=== PATIENT | male | born 1985 ===

== ENCOUNTER 2019-08-09 16:38 | Emergency (ER) | payer SELFPAY ==
[~2019-08-09] VITALS: Ht 172 cm; Wt 89.0 kg
--- OUTSIDE RECORDS SUMMARY | 2019-08-09 16:43 | XMS REPORT ---
Author Author Emerson NAJERA Organization [facility] Address [address] [place] [address] Care Team Providers Care Senior Director Marketing Name Role Phone WINNIE NAJERA Unavailable PROBLEMS Type Condition ICD9-CM Code HSP75-EQ Code Onset Dates Condition S tatus SNOMED Code Problem Internal derangement of right knee M23.91 Active 770881852333800 Problem Lumbago 724.2 Active 550626486 Problem Pain in joint, forearm 719.43 Active 428828437 Problem Screening examination for venereal disease V74.5 Active [id number] ALLERGIES No Information ENCOUNTERS Encounter Location Date Diagnosis [place] [id number] [place] [id number] [address] [place] [phone] Sep, Internal derangement of righ t knee M23.91 [facility] [address] [place] [id number] [address] [place] [phone] Jun, Screen for STD (sexually tra nsmitted disease) Z11.3 and Exposure to STD Z20.2 [place] [address] [place] [id number] [address] [place] [phone] May, Screen for STD (sexually tra nsmitted disease) Z11.3 and Exposure to STD Z20.2 [place] [address] [place] [id number] [address] [place] [phone] Apr, Exposure to STD Z20.2 ; Scre en for STD (sexually transmitted disease) Z11.3 and Dysuria R30.0 [place] [address] [place] [id number] [address] [place] [phone] Jul, [place] [address] [place] [id number] [address] [place] [phone] Jul, [place] [address] [place] [id number] [address] [place] [phone] Oct, [facility] [address] [id number] [address] [place] [phone] Oct, [facility] [address] [id number] [address] [place] [phone] Sep, [facility] [address] [id number] [address] [place] [phone] Sep, [facility] [address] [id number] [address] [place] [phone] Dec, [facility] [address] [id number] [address] [place] [phone] Apr, [facility] [address] [facility] [id number] [address] [place] [phone] Apr, [facility] [address] [facility] [id number] [address] [place] [phone] Apr, IMMUNIZATIONS No Known Immunizations SOCIAL HISTORY Never Assessed REASON FOR VISIT Lab (walk-in) PLAN OF CARE VITAL SIGNS MEDICATIONS No Known Medications RESULTS Name Result Date Reference Range SYPHILIS (STATE) 2017-06-18 PROCEDURES Procedure Date Ordered Result Body Site No Charge June 18, 2017 VENIPUNCT, ROUTINE* June 18, 2017 INSTRUCTIONS MEDICATIONS ADMINISTERED No Known Medications
--- OUTSIDE RECORDS SUMMARY | 2019-08-09 16:43 | XMS REPORT ---
Author Author Emerson Brooks Doctor Organization [facility] Address Unknown Phone Unavailable Care Team Providers Care Community Specialist Name Role Phone Migration, Doctor Unavailable Unavailable PROBLEMS Type Condition ICD9-CM Code WTC07-GM Code Onset Dates Condition S tatus SNOMED Code Problem Lumbago 724.2 Active 371739638 Problem Internal derangement of right knee M23.91 Active 209638963582165 Problem Screening examination for venereal disease V74.5 Active 852987147 Problem Pain in joint, forearm 719.43 Active [id number] ALLERGIES No Information ENCOUNTERS Encounter Location Date Diagnosis [place] [address] [place] [id number] [address] [place] [address] Sep, Internal derangement of righ t knee M23.91 [place] [address] [place] [id number] [address] [place] [address] Jun, Screen for STD (sexually tra nsmitted disease) Z11.3 and Exposure to STD Z20.2 [place] [address] [place] [id number] [address] [place] [address] May, Screen for STD (sexually tra nsmitted disease) Z11.3 and Exposure to STD Z20.2 [place] [address] [place] [address] Apr, Exposure to STD Z20.2 ; Scre en for STD (sexually transmitted disease) Z11.3 and Dysuria R30.0 [place] [address] [place] [id number] [address] [place] [address] Jul, [place] [address] [place] [id number] [address] [place] [phone] Jul, [place] [address] [place] [id number] [address] [place] [phone] Oct, [facility] [address] [id number] [address] [place] [phone] Oct, [facility] [address] [id number] [address] [place] [phone] Sep, [facility] [address] [id number] [address] [place] [phone] Sep, [facility] [address] [id number] [address] [place] [phone] Dec, [facility] [address] [id number] [address] [place] [phone] Apr, [facility] [address] [id number] [address] [place] [phone] Apr, [facility] [address] [facility] [id number] [address] [place] [phone] Apr, IMMUNIZATIONS No Known Immunizations SOCIAL HISTORY Never Assessed REASON FOR VISIT EMR-[facility] PLAN OF CARE VITAL SIGNS MEDICATIONS Medication Instructions Dosage Frequency Start Date End Date Duration S kenny Naproxen 500 mg take 1 tablet (500 m g) by oral route 2 times per day with food Sep, Active RESULTS No Results PROCEDURES No Known procedures INSTRUCTIONS MEDICATIONS ADMINISTERED No Known Medications
--- OUTSIDE RECORDS SUMMARY | 2019-08-09 16:43 | XMS REPORT ---
Author Author Emerson Brooks Doctor Organization [facility] Address Unknown Phone Unavailable Care Team Providers Care Industrial Electrician Name Role Phone Migration, Doctor Unavailable Unavailable PROBLEMS Type Condition ICD9-CM Code DDB53-BQ Code Onset Dates Condition S tatus SNOMED Code Problem Lumbago 724.2 Active 306174720 Problem Internal derangement of right knee M23.91 Active 010305752563899 Problem Screening examination for venereal disease V74.5 Active 358601543 Problem Pain in joint, forearm 719.43 Active 069736946 ALLERGIES No Information ENCOUNTERS Encounter Location Date Diagnosis [place] [address] [place] [id number] [address] [place] [address] Sep, Internal derangement of righ t knee M23.91 [place] [address] [place] [address] Jun, Screen for STD (sexually tra nsmitted disease) Z11.3 and Exposure to STD Z20.2 [place] [address] [place] [id number] [address] [place] [phone] May, Screen for STD (sexually tra nsmitted disease) Z11.3 and Exposure to STD Z20.2 [place] [address] [place] [address] Apr, Exposure to STD Z20.2 ; Scre en for STD (sexually transmitted disease) Z11.3 and Dysuria R30.0 [place] [address] [place] [id number] [address] [place] [phone] Jul, [place] [address] [place] [id number] [address] [place] [phone] Jul, [place] [address] [place] [id number] [address] [place] [phone] Oct, [facility] [address] [id number] [address] [place] [phone] Oct, [facility] [address] [id number] [address] [place] [phone] Sep, [facility] [address] [id number] [address] [place] [phone] Sep, [facility] [address] [id number] [address] [place] [phone] Dec, [facility] [address] [id number] [address] [place] [phone] Apr, [facility] [address] [id number] [address] [place] [phone] Apr, [facility] [address] [facility] [id number] [address] [place] [phone] Apr, IMMUNIZATIONS No Known Immunizations SOCIAL HISTORY Never Assessed REASON FOR VISIT [place] [place] CARE VITAL SIGNS MEDICATIONS No Known Medications RESULTS No Results PROCEDURES No Known procedures INSTRUCTIONS MEDICATIONS ADMINISTERED No Known Medications
--- OUTSIDE RECORDS SUMMARY | 2019-08-09 16:43 | XMS REPORT ---
Author Author Emerson PANDA Organization [facility] Address [address] [place] [address] Care Team Providers Care Brass Reclaimer Name Role Phone ETHANVirgil JOSELITO Unavailable PROBLEMS Type Condition ICD9-CM Code AWF72-HK Code Onset Dates Condition S tatus SNOMED Code Problem Internal derangement of right knee M23.91 Active [id number] ALLERGIES No Information ENCOUNTERS Encounter Location Date Diagnosis [facility] [address] [address] Nov, Contact dermatitis, unspecif ied contact dermatitis type, unspecified trigger L25.9 [facility] [address] [place] [address] Sep, Internal derangement of righ t knee M23.91 [facility] [address] [place] [address] Jun, Screen for STD (sexually tra nsmitted disease) Z11.3 and Exposure to STD Z20.[address] [address] May, Screen for STD (sexually tra nsmitted disease) Z11.3 and Exposure to STD Z20.[address] [address] Apr, Exposure to STD Z20.2 ; Scre en for STD (sexually transmitted disease) Z11.3 and Dysuria R30.0 [place] [address] [address] Jul, [facility] [address] [phone] Jul, [facility] [address] [id number] [address] [place] [phone] Oct, [facility] [address] [id number] [address] [place] [phone] Oct, [facility] [address] [id number] [address] [place] [phone] Sep, [facility] [address] [id number] [address] [place] [phone] Sep, [facility] [address] [id number] [address] [place] [phone] Dec, [facility] [address] [id number] [address] [place] [phone] Apr, [facility] [address] [id number] [address] [place] [phone] Apr, [facility] [address] [id number] [address] [place] [phone] Apr, IMMUNIZATIONS No Known Immunizations SOCIAL HISTORY Never Assessed REASON FOR VISIT PLAN OF CARE VITAL SIGNS Height 70 in 2013-10-13 Weight 157.2 lbs 2013-10-13 Temperature 98 degrees Fahrenheit 2013-10-13 Heart Rate 68 bpm 2013-10-13 Respiratory Rate 20 2013-10-13 Blood pressure systolic 118 mmHg 2013-10-13 Blood pressure diastolic 70 mmHg 2013-10-13 MEDICATIONS No Known Medications RESULTS No Results PROCEDURES Procedure Date Ordered Result Body Site URINALYSIS, AUTO, W/O SCOPE October 13, 2013 INSTRUCTIONS MEDICATIONS ADMINISTERED No Known Medications MEDICAL (GENERAL) HISTORY Type Description Date Surgical History No know Surgical history
--- OUTSIDE RECORDS SUMMARY | 2019-08-09 16:43 | XMS REPORT ---
Author Author Emerson ROTH Organization [facility] Address [address] [place] [address] Care Team Providers Care Ship'S Master Name Role Phone PRETTY ROTH Unavailable PROBLEMS Type Condition ICD9-CM Code AUB76-XF Code Onset Dates Condition S tatus SNOMED Code Problem Internal derangement of right knee M23.91 Active 374543377667655 Problem Lumbago 724.2 Active 859535651 Problem Pain in joint, forearm 719.43 Active 672835307 Problem Screening examination for venereal disease V74.5 Active 550298273 ALLERGIES No Known Allergies ENCOUNTERS Encounter Location Date Diagnosis [place] [address] [place] [address] Sep, Internal derangement of righ t knee M23.91 [facility] [address] [place] [phone] Jun, Screen for STD (sexually tra nsmitted disease) Z11.3 and Exposure to STD Z20.2 [place] [address] [place] [id number] [address] [place] [phone] May, Screen for STD (sexually tra nsmitted disease) Z11.3 and Exposure to STD Z20.2 [facility] [address] [place] [id number] [address] [place] [phone] Apr, Exposure to STD Z20.2 ; Scre en for STD (sexually transmitted disease) Z11.3 and Dysuria R30.0 [facility] [address] [place] [id number] [address] [place] [phone] Jul, [place] [address] [place] [id number] [address] [place] [phone] Jul, [place] [address] [place] [id number] [address] [place] [phone] Oct, [facility] [address] [id number] [address] [place] [phone] Oct, [facility] [address] [id number] [address] [place] [phone] Sep, [facility] [address] [id number] [address] [place] [phone] Sep, [facility] [address] [id number] [address] [place] [phone] Dec, [facility] [address] [id number] [address] [place] [phone] Apr, [facility] [address] [id number] [address] [place] [phone] Apr, [facility] [address] [id number] [address] [place] [phone] Apr, IMMUNIZATIONS No Known Immunizations SOCIAL HISTORY Never Assessed REASON FOR VISIT Establish Care-HAYLIE wong, right knee is has pain for about a year. PLAN OF CARE Activity Details Follow Up prn Reason:knee pain Pending Test MRI : Knee, Right w/contrast VITAL SIGNS Height 70 in 2017-10-09 Weight 175.1 lbs 2017-10-09 Temperature 98.2 degrees Fahrenheit 2017-10-09 Heart Rate 68 bpm 2017-10-09 Respiratory Rate 18 2017-10-09 BMI 25.12 kg/m2 2017-10-09 Blood pressure systolic 110 mmHg 2017-10-09 Blood pressure diastolic 62 mmHg 2017-10-09 MEDICATIONS Medication Instructions Dosage Frequency Start Date End Date Duration S kenny Naproxen 500 mg take 1 tablet (500 m g) by oral route 2 times per day with food Sep, Not-Taking RESULTS No Results PROCEDURES No Known procedures INSTRUCTIONS MEDICATIONS ADMINISTERED No Known Medications
--- OUTSIDE RECORDS SUMMARY | 2019-08-09 16:44 | XMS REPORT ---
Author Author Emerson NAJERA Organization [facility] Address [address] [place] [address] Care Team Providers Care Stem Threshing Machine Operator Name Role Phone WINNIE NAJERA Unavailable PROBLEMS Type Condition ICD9-CM Code UZB76-XT Code Onset Dates Condition S tatus SNOMED Code Problem Lumbago 724.2 Active 150256171 Problem Pain in joint, forearm 719.43 Active 909525329 Problem Screening examination for venereal disease V74.5 Active 838644966 ALLERGIES No Known Allergies ENCOUNTERS Encounter Location Date Diagnosis [facility] [address] [facility] [id number] [address] [place] [phone] Jun, Screen for STD (sexually tra nsmitted disease) Z11.3 and Exposure to STD Z20.2 [facility] [address] [facility] [id number] [address] [place] [phone] May, Screen for STD (sexually tra nsmitted disease) Z11.3 and Exposure to STD Z20.2 [facility] [address] [facility] [id number] [address] [place] [phone] Apr, Exposure to STD Z20.2 ; Scre en for STD (sexually transmitted disease) Z11.3 and Dysuria R30.0 [facility] [address] [facility] [id number] [address] [place] [phone] Jul, [facility] [address] [facility] [id number] [address] [place] [phone] Jul, [facility] [address] [facility] [id number] [address] [place] [phone] Oct, [facility] [address] [facility] [id number] [address] [place] [phone] Oct, [facility] [address] [facility] [id number] [address] [place] [phone] Sep, [facility] [address] [facility] [id number] [address] [place] [phone] Sep, [facility] [address] [facility] [id number] [address] [place] [phone] Dec, [facility] [address] [facility] [id number] [address] [place] [phone] Apr, [facility] [address] [facility] [id number] [address] [place] [phone] Apr, [facility] [address] [facility] [id number] [address] [place] [phone] Apr, IMMUNIZATIONS No Known Immunizations SOCIAL HISTORY Never Assessed REASON FOR VISIT STD check- states it schaeffer when he urinates- Whit Perez rn PLAN OF CARE VITAL SIGNS Height 70 in 2017-04-23 Weight 149 lbs 2017-04-23 Temperature 98.3 degrees Fahrenheit 2017-04-23 Heart Rate 72 bpm 2017-04-23 Respiratory Rate 18 2017-04-23 BMI 21.38 kg/m2 2017-04-23 Blood pressure systolic 122 mmHg 2017-04-23 Blood pressure diastolic 82 mmHg 2017-04-23 MEDICATIONS Medication Instructions Dosage Frequency Start Date End Date Duration S kenny Naproxen 500 mg take 1 tablet (500 m g) by oral route 2 times per day with food Sep, Unknown RESULTS Name Result Date Reference Range HEP C ANTIBODY (STATE) 2017-04-23 RESULTS non-reactive HIV (STATE) 2017-04-23 HEP B SURFACE ANTIGEN (STATE) 2017-04-23 HEP B ANTIBODY non-reactive HEP B ANTIBODY (RML) HEP B ANTIBODY (STATE) GC/CHLAM URINE (STATE) CHLAMYDIA GC SYPHILIS (STATE) 2017-04-23 PROCEDURES Procedure Date Ordered Result Body Site No Charge Apr 23, 2017 VENIPUNCT, ROUTINE* Apr 23, 2017 INSTRUCTIONS MEDICATIONS ADMINISTERED No Known Medications
--- OUTSIDE RECORDS SUMMARY | 2019-08-09 16:44 | XMS REPORT ---
Author Author Emerson NAJERA Organization [facility] Address [address] [place] [address] Care Team Providers Care Form Grader Name Role Phone WINNIE NAJERA Unavailable PROBLEMS Type Condition ICD9-CM Code XDG78-BI Code Onset Dates Condition S tatus SNOMED Code Problem Internal derangement of right knee M23.91 Active 819027722547365 Problem Lumbago 724.2 Active 901163030 Problem Pain in joint, forearm 719.43 Active 529005252 Problem Screening examination for venereal disease V74.5 Active 384070689 ALLERGIES No Information ENCOUNTERS Encounter Location Date Diagnosis [place] [address] [place] [id number] [address] [place] [address] Sep, Internal derangement of righ t knee M23.91 [facility] [address] [place] [id number] [address] [place] [address] Jun, Screen for STD (sexually tra nsmitted disease) Z11.3 and Exposure to STD Z20.2 [place] [address] [place] [id number] [address] [place] [address] May, Screen for STD (sexually tra nsmitted disease) Z11.3 and Exposure to STD Z20.2 [place] [address] [place] [id number] [address] [place] [address] Apr, Exposure to STD Z20.2 ; Scre en for STD (sexually transmitted disease) Z11.3 and Dysuria R30.0 [place] [address] [place] [id number] [address] [place] [address] Jul, [place] [address] [place] [id number] [address] [place] [address] Jul, [place] [address] [place] [id number] [address] [place] [phone] Oct, [facility] [address] [id number] [address] [place] [phone] Oct, [facility] [address] [id number] [address] [place] [phone] Sep, [facility] [address] [id number] [address] [place] [phone] Sep, [facility] [address] [id number] [address] [place] [phone] Dec, [facility] [address] [id number] [address] [place] [phone] Apr, [facility] [address] [facility] [id number] [address] [place] [phone] Apr, [facility] [address] [facility] [id number] [address] [place] [phone] Apr, IMMUNIZATIONS No Known Immunizations SOCIAL HISTORY Never Assessed REASON FOR VISIT need lab/ PLAN OF CARE VITAL SIGNS MEDICATIONS No Known Medications RESULTS No Results PROCEDURES No Known procedures INSTRUCTIONS MEDICATIONS ADMINISTERED No Known Medications
[2019-08-09] MEDS ORDERED: TETANUS,DIPTH,PERTUSS P/F (BOOSTRIX) 0.5 ML VIAL IM ONE (17:00)
[2019-08-09] MEDS ORDERED: cefTRIAXone 1,000 MG/2.86 ml vial (IM ONLY) IM SCH (17:00)
[2019-08-09] MEDS ORDERED: LIDOCAINE 1% INJ 20 ML 20 ML VIAL INJ ONE (17:00)
[2019-08-09] MEDS ORDERED: HYDR-3870 PO (17:13)
[2019-08-09] MEDS ORDERED: CEPH-507 PO (17:13)
--- NOTE | 2019-08-09 17:14 | ED Upper Extremity ---
General Chief Complaint: Upper Extremity Stated Complaint: POTENTIAL BROKEN FINGER Nursing Triage Note: PT SENT TO ED FROM [facility], PT INJURED R THUMB W [employer] CONSULTANT Nursing Sepsis Screen: No Definite Risk Source: patient Exam Limitations: no limitations History of Present Illness Date Seen by Provider: Aug 09, 2019 Time Seen by Provider: 17:09 Initial Comments To ER from [facility] walk[facility]in [facility] with laceration to the very tip of the right thumb from a edge grinder machine just prior to arrival. Tetanus is not up-to-date. Onset: just prior to arrival Pain/Injury Location: right thumb Modifying Factors: Worse With Movement Allergies and Home Medications Allergies Coded Allergies: No Known Drug Allergies (Unverified , 08/09/19) Home Medications Cephalexin 500 Mg Capsule, 500 MG PO TID Prescribed by: NISHA NARAYANAN on 08/09/191712 Hydrocodone/Acetaminophen 1 Each Tablet, 1 EACH PO Q4-6HR PRN for PAIN-MODERATE Prescribed by: NISHA NARAYANAN on 08/09/191713 Patient Home Medication List Home Medication List Reviewed: Yes Review of Systems Constitutional: see HPI EENTM: see HPI Respiratory: no symptoms reported Genitourinary: no symptoms reported Musculoskeletal: no symptoms reported Skin: see HPI Psychiatric/Neurological: No Symptoms Reported Past Ozautej-Wkbtqo-Befmck Hx Patient Social History Alcohol Use: Occasionally Uses Recreational Drug Use: No Smoking Status: Never a Smoker Recent Foreign Travel: No Contact w/Someone Who Travel: No Recent Infectious Disease Expo: No Recent Hopitalizations: No Physical Abuse: No Sexual Abuse: No Immunizations Up To Date Tetanus Booster (TDap): More than 5yrs Past Medical History Surgeries: No Respiratory: No Cardiac: No Neurological: No Genitourinary: No Gastrointestinal: No Musculoskeletal: No Endocrine: No HEENT: No Cancer: No Psychosocial: No Blood Disorders: No Adverse Reaction/Blood Tranf: No Physical Exam Vital Signs Vital Signs - First Documented 08/09/19 16:45 Temp 37.1 Pulse 79 Resp 18 B/P (MAP) 120/71 (87) Pulse Ox 96 Capillary Refill : Less Than 3 Seconds Height, Weight, BMI Height: '" Weight: lbs. oz. kg; 30.00 BMI Method: General Appearance: WD/WN, no apparent distress HEENT: PERRL/EOMI, normal ENT inspection Respiratory: no respiratory distress, no accessory muscle use Shoulder: normal inspection, non-tender Elbow/Forearm: normal inspection, non-tender Wrist: Yes normal inspection, Yes non-tender Hand: Right, laceration, nail injury Procedures/Interventions Wound Location: Upper Extremities Wound Length (cm): 2 Wound's Depth, Shape: linear Wound Explored: clean Suture Size: 4-0 Number of Sutures: 4 Layer Closure?: 1 Number Deep Layer Sutures: 0 Progress/Results/Core Measures Results/Orders My Orders Orders - NISHA NARAYANAN APRN Hand, Right, 3 Views (08/09/19 16:56) Dipht,Pertuss(Acell),Tet Adult (Boostrix (08/09/19 17:00) Ceftriaxone For Im Use (Rocephin For Im (08/09/19 17:00) Lidocaine 1% Inj 20 Ml (Xylocaine 1% Inj (08/09/19 17:00) Medications Given in ED Current Medications Medications Dose Ordered Sig/Chang Route Start Time Stop Time Status Last Admin Dose Admin Diphtheria/ Tetanus/Acell Pertussis 0.5 ml ONCE ONCE IM 08/09/19 17:00 08/09/19 17:01 DC 08/09/19 17:06 0.5 ML Lidocaine HCl 2.1 ml ONCE ONCE INJ 08/09/19 17:00 08/09/19 17:01 DC 08/09/19 17:07 2.1 ML Vital Signs/I&O 08/09/19 16:45 Temp 37.1 Pulse 79 Resp 18 B/P (MAP) 120/71 (87) Pulse Ox 96 Blood Pressure Mean: 87 Departure Impression Primary Impression: Fracture of thumb Qualified Codes: S62.521B - Displaced fracture of distal phalanx of right thumb, initial encounter for open fracture Additional Impression: Laceration of thumb Qualified Codes: S61.111A - Laceration without foreign body of right thumb with damage to nail, initial encounter Disposition: HOME, SELF-CARE Condition: Stable Departure-Patient Inst. Decision time for Depature: 17:14 Patient Instructions: Laceration Repair With Stitches (DC) Add. Discharge Instructions: 1. Change the dressing daily 2. Return to ER to have the stitches removed in about 10-12 days. You can shower letting water run over this starting tonight. Return to ER for any sign of infection such as increased swelling redness or pain. All discharge instructions reviewed with patient and/or family. Voiced understanding. Scripts Hydrocodone/Acetaminophen (Lorcet 5-325 mg Tablet) 1 Each Tablet 1 EACH PO Q4-6HR PRN for PAIN-MODERATE MDD 10 for 7 Days, #10 TAB Prov: NISHA NARAYANAN APRN 08/09/19 Cephalexin (Keflex) 500 Mg Capsule 500 MG PO TID, #15 CAP Prov: NISHA NARAYANAN APRN 08/09/19 Images Extremities-Upper 1 - NISHA NARAYANAN APRN Aug 09, 2019 17:14
--- NOTE | 2019-08-09 17:29 | Diagnostic Imaging Report ---
INDICATION: Trauma to the hand. COMPARISON: None. EXAMINATION: Three radiographic views of the right hand were obtained. FINDINGS: There is soft tissue defect involving the distal margins of the thumb. There is underlying osseous injury to the distal tuft. Small slightly displaced fracture fragment is noted. There is no intra-articular extension. No other acute osseous abnormality is seen. Joint spaces are maintained. No unexpected radiopaque foreign body is identified. IMPRESSION: Osseous and soft tissue injury to the thumb of the right hand, as above. No unexpected radiopaque foreign body. Dictated by: Dictated on workstation # [id number]
[2019-08-09 17:35] VITALS: BP 120/71
== END 2019-08-09 17:35 | disposition home or self-care (01) ==
LOC: EDUNIT# 16:38 → ER 16:40
DX: S62.521A Displaced fracture of distal phalanx of right thumb, initial encounter for closed fracture (principal); S61.111A Laceration without foreign body of right thumb with damage to nail, initial encounter; Z23 Encounter for immunization; W29.0XXA Contact with powered kitchen appliance, initial encounter
CPT/HCPCS: 12042; 73130; 90715